=== PATIENT | female | born 2000 | race American Indian/Alaskan Native ===

== ENCOUNTER 2021-04-29 17:46 | Emergency (ER) | payer SELFPAY ==
[2021-04-29] MEDS ORDERED: ONDANSETRON 4 MG ODT TAB PO ONE (18:40)
[2021-04-29] MEDS ORDERED: KETOROLAC 60 MG/2 ML INJ IM ONE (18:40)
--- NOTE | 2021-04-29 19:35 | Cat Scan Report ---
CT head/brain wo con INDICATION / CLINICAL INFORMATION: 20 years Female; new onset headache. TECHNIQUE: Routine CT head without contrast. All CT scans at this location are performed using CT dos e reduction for ALARA by means of automated exposure control. COMPARISON: None. FINDINGS: BRAIN / INTRACRANIAL CONTENTS: No acute hemorrhage, mass effect, midline shift, hydrocephalus, or acu te, large territorial infarct. No signs of significant atrophy or chronic infarct. No significant whi te matter abnormality seen. CRANIOCERVICAL JUNCTION: No significant abnormality. ORBITS: No significant abnormality of visualized orbits. SINUSES / MASTOIDS: Visualized paranasal sinuses and mastoid air cells are essentially clear. ADDITIONAL FINDINGS: None. IMPRESSION: 1. No focal mass, hemorrhage, hydrocephalus, or acute, large territorial infarct. Signer Name: Bridger Angulo MD, III Signed: 04/29/2021 7:31 PM Workstation Name: [id number]
[2021-04-29 19:57] LABS: Bilirubin,Urine NEG (Negative); Blood,Urine NEG (Negative); Color,Urine Yellow (Yellow); HCG Qualitative,Urine Negative (Negative); Mucus,Urine FEW /HPF; Protein,Urine <15 mg/dL mg/dL (Negative); WBC,Urine < 1.0 /HPF (0.0-6.0)
--- NOTE | 2021-04-29 20:22 | Emergency Department Report ---
ED Headache HPI - General Chief Complaint: Headache Stated Complaint: BAD HEADACHE Time Seen by Provider: 04/29/21 18:33 - History of Present Illness Initial Comments: Patient is a 20-year-old F [place] female who is presenting with headache. States headaches are new over the last week. Initially intermittent but very steady for the past 2 days. Mild light sensitivity nausea associated. Some throbbing sensation all over is estimated 6 out of 10 in severity. Patient has no history of any head trauma or headaches in the past. Patient also states she is been taking her blood pressure at home and her blood pressure is been reading in the 120 range for her systolic. denies fevers chills cough cold or congestion. Allergies/Adverse Reactions: Allergies No Known Allergies Allergy (Verified 04/29/21 18:48) Home Medications: Ambulatory Orders Butalb/Acetaminophen/Caffeine [Fioricet 50-300-40 mg CAP] 1 cap PO Q6HR PRN #10 cap 04/29/21 Ketorolac [Toradol] 10 mg PO Q6H PRN #20 tablet 04/29/21 Ondansetron [Zofran Odt] 4 mg PO Q8HR #10 tab.rapdis 04/29/21 ED Review of Systems ROS: Stated complaint: BAD HEADACHE Other details as noted in HPI Comment: All other systems reviewed and negative ED Past Medical Hx - Past Medical History Previous Medical History?: No Additional medical history: denies - Surgical History Past Surgical History?: Yes Additional Surgical History: breast augmentation - Medications Home Medications: Home Medications Medication Instructions Recorded Confirmed Last Taken Type Butalb/Acetaminophen/Caffeine 1 cap PO Q6HR PRN #10 cap 04/29/21 Unknown Rx [Fioricet 50-300-40 mg CAP] Ketorolac [Toradol] 10 mg PO Q6H PRN #20 tablet 04/29/21 Unknown Rx Ondansetron [Zofran Odt] 4 mg PO Q8HR #10 tab.rapdis 04/29/21 Unknown Rx ED Physical Exam - General Limitations: No Limitations General appearance: alert, in no apparent distress - Head Head exam: Present: atraumatic, normocephalic - Eye Eye exam: Present: normal appearance - ENT ENT exam: Present: mucous membranes moist - Neck Neck exam: Present: normal inspection - Respiratory Respiratory exam: Present: normal lung sounds bilaterally. Absent: respiratory distress, wheezes, rales, rhonchi - Cardiovascular Cardiovascular Exam: Present: regular rate, normal rhythm. Absent: systolic murmur, diastolic murmur, rubs, gallop - GI/Abdominal GI/Abdominal exam: Present: soft, normal bowel sounds. Absent: distended, tenderness, guarding, rebound - Extremities Exam Extremities exam: Present: normal inspection - Back Exam Back exam: Present: normal inspection - Neurological Exam Neurological exam: Present: alert, oriented X3 - Psychiatric Psychiatric exam: Present: normal affect, normal mood - Skin Skin exam: Present: warm, dry, intact, normal color. Absent: rash ED Course Vital Signs 04/29/21 04/29/21 18:28 19:16 Temperature 98.5 F Pulse Rate 61 Respiratory 20 18 Rate Blood Pressure 154/86 O2 Sat by Pulse 100 Oximetry ED Medical Decision Making - Lab Data Lab Results 04/29/21 Range/Units 19:11 Urine Color Yellow (Yellow) Urine Turbidity Clear (Clear) Urine pH 5.0 (5.0-7.0) Ur Specific [place] 1.025 (1.003-1.030) Urine Protein <15 mg/dl (Negative) mg/dL Urine Glucose (UA) Neg (Negative) mg/dL Urine Ketones Neg (Negative) mg/dL Urine Blood Neg (Negative) Urine Nitrite Neg (Negative) Urine Bilirubin Neg (Negative) Urine Urobilinogen 2.0 (<2.0) mg/dL Ur Leukocyte Esterase Neg (Negative) Urine WBC (Auto) < 1.0 (0.0-6.0) /HPF Urine RBC (Auto) 2.0 (0.0-6.0) /HPF U Epithel Cells (Auto) 3.0 (0-13.0) /HPF Urine Mucus Few /HPF Urine HCG, Qual Negative (Negative) - Radiology Data CT head is within normal limits - Medical Decision Making Patient will be referred to neurology. Given medication for symptomatic relief. No abnormality seen on urinalysis or CT of the head. Patient discharged home. Critical care attestation.: If time is entered above; I have spent that time in minutes in the direct care of this critically ill patient, excluding procedure time. ED Disposition Clinical Impression: Acute headache Disposition: HOME / SELF CARE / HOMELESS Is pt being admited?: No Does the pt Need Aspirin: No Condition: Stable Instructions: Tension Headache, Adult, [id number], Cluster Headache, [id number], Migraine Headache, [id number] Prescriptions: Butalb/Acetaminophen/Caffeine [Fioricet 50-300-40 mg CAP] 1 cap PO Q6HR PRN #10 cap PRN Reason: Headache Ketorolac [Toradol] 10 mg PO Q6H PRN #20 tablet PRN Reason: Pain Ondansetron [Zofran Odt] 4 mg PO Q8HR #10 tab.rapdis Referrals: MARIA GUADALUPE AMANDA MD [Staff Physician] - 3-5 Days Time of Disposition: 20:13
[2021-04-29 20:30] VITALS: BP 152/84
== END 2021-04-29 20:29 | disposition home or self-care (01) ==
LOC: ED 17:46
DX: R51.9 Headache, unspecified (principal); R11.0 Nausea; Z79.899 Other long term (current) drug therapy
CPT/HCPCS: 70450; 81001; 81025; 96372; 99284; J1885; Q0162